=== PATIENT | female | born 1955 | race African-American/Black ===

== ENCOUNTER → 2016-10-31 | Outpatient (CLI) | payer BC ==
--- NOTE | ~2016-10-31 | MY11 ---
[facility] A Service of [facility] RADIOLOGY TEXT RESULTS PATIENT: RIMA SIMPSON LOCATION: [facility] : 57 UNIT #: [id number] AGE: [address]: CLAUDETTE ALVARES APRN SEX: F ORDER DR: [id number] [facility]. [place], [place] [address] [id number] MR#: [id number] Acc #: [id number] NAME: RIMA SIMPSON : 1955 SEX: F STUDY DATE/TIME: 10/31/2016 16:31 UNIT: [facility] ROOM: STUDY DESCRIPTION: MY Mammogram Screening Dig Red Attending Physician: Claudette Alvares Ordering Physician: Physician Non-Staff Primary Care Physician: Claudette Alvares MEDICAL IMAGING REPORT This report is preliminary unless electronic signature is present EXAM Bilateral digital screening with CAD. HISTORY Routine screening. No current complaints. No family history of breast cancer. Old studies from 2006 cannot be located. TECHNIQUE MLO and CC digital views of each breast were obtained and reviewed with an FDA-approved CAD. FINDINGS The breasts are heterogenously dense. There are no masses or abnormal calcifications. IMPRESSION No evidence of malignancy. Patients over the age of 40 are entered into a reminder system with target due date for the next mammogram. A result letter will also be sent to the patient. BIRADS: 1 Negative Dictated by... Jerome Olguin M.D. THIS IS AN ELECTRONICALLY VERIFIED REPORT Jerome Olguin M.D. at 11/01/2016 1:53 PM VIRAL/bruce [facility] A Service of [facility] RADIOLOGY TEXT RESULTS PATIENT: RIMA SIMPSON LOCATION: [facility] : 57 UNIT #: [id number] AGE: [address]: CLAUDETTE ALVARES APRN SEX: F ORDER DR: TD: 11/01/2016 12:56 JOB #: [id number] MEDICAL IMAGING REPORT Page 1 of 1 COPY
== END | disposition home or self-care (01) ==
LOC: CWCC 16:27
DX: Z12.31 Encounter for screening mammogram for malignant neoplasm of breast (principal)
CPT/HCPCS: G0202